=== PATIENT | male | born 1965 | race Caucasian/White ===

== ENCOUNTER 2018-03-31 09:55 | Observation (INO) ==
[2018-03-31] MEDS ORDERED: Sod Chloride 0.9% Inj 1,000 ML IV.SIG ONE (10:34)
--- NOTE | 2018-03-31 10:42 | ED ---
HPI General Chief complaint: Abdominal Pain Stated complaint: Med clearance Time Seen by Provider: 03/31/18 10:27 Source: patient Mode of arrival: ambulatory Limitations: no limitations History of Present Illness HPI narrative: The patient is 52-year-old male with history of hypertension on metoprolol, diabetes on metformin and depression resented with complaint of muscle cramps and profuse sweating but stopped after he started working for 3 hours on the heat. The patient is diabetic and has been drinking a lot of water. He states that he drank almost 15 L of water yesterday another 6 L today. He usually gets Pedialyte but he did not have anything with electrode so she was just drinking water. Complains of polydipsia and polyuria Onset (ago): hour(s) (1) Location: upper extremity and lower extremity Radiation: non-radiation Severity: moderate Severity scale (1-10): 5 Quality: other (Cramping ) Pain Consistency: constant Relieving factors: none Exacerbating factors: other (Exertion) Associated symptoms: diaphoresis (Patient stopped swelling about an hour and a half ago..) Related Data Home Medications Medication Instructions Recorded Confirmed allopurinol 100 mg PO DAILY 03/31/18 03/31/18 alprazolam [Xanax] 1 mg PO BID PRN 03/31/18 03/31/18 citalopram 40 mg PO DAILY 03/31/18 03/31/18 metformin 500 mg PO BID 03/31/18 03/31/18 metoprolol tartrate 50 mg PO HS 03/31/18 03/31/18 promethazine 25 mg PO Q4H PRN 03/31/18 03/31/18 tamsulosin 0.4 mg PO DAILY 03/31/18 03/31/18 Allergies Allergy/AdvReac Type Severity Reaction Status Date / Time No Known Allergies Allergy Unverified 03/31/18 10:18 Review of Systems ROS Unobtainable All other systems reviewed negative except as stated in HPI Constitutional Denies fever(s) Eyes Denies change in vision ENT Denies headache(s) and Denies nasal congestion Cardiovascular Denies chest pain Respiratory Denies dyspnea Gastrointestinal Denies abdominal pain Genitourinary Denies difficulty urinating Musculoskeletal Reports myalgias and Reports muscle cramps Integumentary/Breasts Denies rash Neurologic Denies headache(s) Psychiatric Denies depression Endocrine Reports as per HPI, Reports excessive sweating, Reports polydipsia and Reports polyuria Hematologic/Lymphatic Denies easy bruising [facility] Medical History Medical History Anxiety (Acute) Depression (Acute) Diabetes (Acute) Gout (Acute) Hypertension (Acute) Social History Social History Substance History: No History of Abuse Second Hand Smoke Exposure: No Smoking Status: Never smoker How Often Do You Have a Drink Containing Alcohol: Monthly or less Recent Travel in [facility] within the Last 8 Weeks: No Recent Out of Country Travel within the Last 8 Weeks: No Immunization History Tetanus Immunization: <5 Years Hx Influenza Vaccine This Season: No Exam Const General: no acute distress and does not appear intoxicated Nutritional Appearance: obese Orientation: alert, awake and oriented x3 Limitations: mental status not altered and no behavioral limitations HENMT Head: normocephalic and atraumatic Nose: no nasal discharge and no epistaxis Mouth: moist mucous membranes Eyes Sclera: normal sclerae Pupils: PERRL Neck Neck: trachea midline and no JVD Resp Effort & Inspection: no use of accessory muscles Auscultation: clear to auscultation bilaterally Cardio Rate: regular rate Rhythm: regular rhythm Heart Sounds: no murmurs GI Inspection: non-distended Palpation: soft, no hepatosplenomegaly and nontender Skin General: dry skin (warm) and petechiae (lower extremities bilaterally) Neuro General: alert and awake Cranial Nerves: other Speech: speech normal Motor: no movement abnormalities noted Extrem General: normal to inspection, no clubbing, no cyanosis and no edema Psych Mood: congruent mood Affect: normal affect Judgment: judgment good Course Hospital Course: Patient with elevated CK. Start hydration in the deep renal azotemia and AK I also noted. UA is not suggestive of rhabdomyolysis at this time. Tox screen was positive for benzodiazepines. No signs of stimulant abuse. Reevaluation(s) Reevaluation #1: Patient's resting comfortably being rehydrated. We will admit under observation for hydration and reevaluate in the morning Time: 12:32 Initial Documented Vital Signs Temperature 97.9 F 03/31/18 10:00 Pulse Rate 91 H 03/31/18 10:00 Respiratory Rate 20 03/31/18 10:00 Blood Pressure 134/66 03/31/18 10:00 Pulse Oximetry 97 03/31/18 10:00 Last Documented Vital Signs Temperature 97.9 F 03/31/18 10:00 Pulse Rate 73 03/31/18 14:59 Respiratory Rate 18 03/31/18 14:59 Blood Pressure 144/86 H 03/31/18 14:59 Pulse Oximetry 98 03/31/18 14:59 Medical Decision Making MDM Narrative Medical decision making narrative: Patient with elevated CK above 1000. His urinalysis is not suggestive of rhabdomyolysis at this time. Glucose elevated BUN 27 AST 43. Prerenal azotemia noted. Patient was hydrated and will be admitted for continued hydration and serial CKs for resolution of his current presentation. Hemodynamically stable alert and oriented not appearing toxic. Lab Data Lab results reviewed: Yes I reviewed the patient's lab results. Result diagrams: 03/31/18 10:45 03/31/18 10:45 Lab Results 03/31/18 03/31/18 03/31/18 Range/Units 10:45 10:45 10:45 WBC 9.0 (4.0-11.0) th/mm3 RBC 5.09 (4.50-5.90) mil/mm3 Hgb 16.4 (13.0-17.0) gm/dL Hct 47.7 (39.0-51.0) % MCV 93.8 (80.0-100.0) fL MCH 32.2 (27.0-34.0) pg MCHC 34.3 (32.0-36.0) % RDW 13.8 (11.6-17.2) % Plt Count 253 (150-450) th/mm3 MPV 8.8 (7.0-11.0) fL Neut % (Auto) 68.6 (16.0-70.0) % Lymph % (Auto) 21.5 (9.0-44.0) % [place] % (Auto) 8.9 H (0.0-8.0) % Eos % (Auto) 0.7 (0.0-4.0) % Baso % (Auto) 0.3 (0.0-2.0) % Neut # (Auto) 6.2 (1.8-7.7) th/mm3 Lymph # (Auto) 1.9 (1.0-4.8) th/mm3 [place] # (Auto) 0.8 (0.0-0.9) th/mm3 Eos # (Auto) 0.1 (0.0-0.4) th/mm3 Baso # (Auto) 0.0 (0.0-0.2) th/mm3 WBC Differential . Differential Comment Auto diff final Sodium 137 (136-145) meq/L Potassium 4.5 (3.5-5.1) meq/L Chloride 104 (98-107) meq/L Carbon Dioxide 24.5 (21.0-32.0) meq/L Anion Gap 9 (5-15) meq/L BUN 27 H (7-18) mg/dL Creatinine 1.28 (0.60-1.30) mg/dL Estimated GFR 59 L (>89) mL/min Random Glucose 176 H (74-106) mg/dL Calcium 9.3 (8.5-10.1) mg/dL Total Bilirubin 0.5 (0.2-1.0) mg/dL AST 43 H (15-37) U/L ALT 34 (12-78) U/L Alkaline Phosphatase 67 (45-117) U/L Total Creatine Kinase 1079 H Cancelled (39-308) U/L CK-MB (CK-2) 9.6 H (0.5-3.6) ng/mL CK-MB (CK-2) % 0.9 (0.0-4.0) % Total Protein 8.8 H (6.4-8.2) g/dL Albumin 4.3 (3.4-5.0) g/dL Urine Color (Yellw/Straw) Urine Clarity (Clear) Urine pH (5.0-8.5) Ur Specific [place] (1.002-1.035) Urine Protein (Neg-Trace) mg/dL Urine Glucose (UA) (Negative) mg/dL Urine Ketones (Negative) mg/dL Urine Occult Blood (Negative) Urine Nitrate (Negative) Urine Bilirubin (Negative) Urine Urobilinogen (Less than 2) mg/dL Ur Leukocyte Esterase (Negative) Urine RBC (0-3) /hpf Urine WBC (0-5) /hpf Ur Squamous Epith Cells (0-5) /hpf Urine Bacteria (None) /hpf Hyaline Casts (0-3) /lpf Urine Mucus (Occasional) /lpf Urine Opiates Screen (Neg) Ur Barbiturates Screen (Neg) Ur Amphetamines Screen (Neg) U Benzodiazepines Scrn (Neg) Urine Cocaine Screen (Neg) U Cannabinoids Screen (Neg) Serum Alcohol Less than 3 (0-5) mg/dL 03/31/18 03/31/18 Range/Units 10:58 10:58 WBC (4.0-11.0) th/mm3 RBC (4.50-5.90) mil/mm3 Hgb (13.0-17.0) gm/dL Hct (39.0-51.0) % MCV (80.0-100.0) fL MCH (27.0-34.0) pg MCHC (32.0-36.0) % RDW (11.6-17.2) % Plt Count (150-450) th/mm3 MPV (7.0-11.0) fL Neut % (Auto) (16.0-70.0) % Lymph % (Auto) (9.0-44.0) % [place] % (Auto) (0.0-8.0) % Eos % (Auto) (0.0-4.0) % Baso % (Auto) (0.0-2.0) % Neut # (Auto) (1.8-7.7) th/mm3 Lymph # (Auto) (1.0-4.8) th/mm3 [place] # (Auto) (0.0-0.9) th/mm3 Eos # (Auto) (0.0-0.4) th/mm3 Baso # (Auto) (0.0-0.2) th/mm3 WBC Differential Differential Comment Sodium (136-145) meq/L Potassium (3.5-5.1) meq/L Chloride (98-107) meq/L Carbon Dioxide (21.0-32.0) meq/L Anion Gap (5-15) meq/L BUN (7-18) mg/dL Creatinine (0.60-1.30) mg/dL Estimated GFR (>89) mL/min Random Glucose (74-106) mg/dL Calcium (8.5-10.1) mg/dL Total Bilirubin (0.2-1.0) mg/dL AST (15-37) U/L ALT (12-78) U/L Alkaline Phosphatase (45-117) U/L Total Creatine Kinase (39-308) U/L CK-MB (CK-2) (0.5-3.6) ng/mL CK-MB (CK-2) % (0.0-4.0) % Total Protein (6.4-8.2) g/dL Albumin (3.4-5.0) g/dL Urine Color Yellow (Yellw/Straw) Urine Clarity Hazy H (Clear) Urine pH 5.0 (5.0-8.5) Ur Specific [place] 1.030 (1.002-1.035) Urine Protein 100 H (Neg-Trace) mg/dL Urine Glucose (UA) Negative (Negative) mg/dL Urine Ketones Negative (Negative) mg/dL Urine Occult Blood Negative (Negative) Urine Nitrate Negative (Negative) Urine Bilirubin Negative (Negative) Urine Urobilinogen 2.0 H (Less than 2) mg/dL Ur Leukocyte Esterase Negative (Negative) Urine RBC 1 (0-3) /hpf Urine WBC 1 (0-5) /hpf Ur Squamous Epith Cells 1 (0-5) /hpf Urine Bacteria Many H (None) /hpf Hyaline Casts 36 (0-3) /lpf Urine Mucus Few H (Occasional) /lpf Urine Opiates Screen Neg (Neg) Ur Barbiturates Screen Neg (Neg) Ur Amphetamines Screen Neg (Neg) U Benzodiazepines Scrn Pos H (Neg) Urine Cocaine Screen Neg (Neg) U Cannabinoids Screen Neg (Neg) Serum Alcohol (0-5) mg/dL Imaging Data Attestation: I personally reviewed and interpreted this imaging study as follows : Radiologist's impression: Chest X-Ray 03/31/18 10:34 CONCLUSION: No acute intrathoracic disease. Discharge Plan Discharge Disposition Patient Disposition: 30 Still Patient Discharge Condition Condition: Stable Discharge Details Diagnosis: Elevated CK, Acute dehydration Physicians Team ED Provider: Alvaro Hendrix Primary Care Provider: UNKNOWN, Attending Provider: Wilma Reyes Status ED Status: Admitted Observation Patient
--- NOTE | 2018-03-31 11:16 | XR ---
EXAM DATE: 03/31/2018 11:07 AM EDT AGE/SEX: 52 years / Male INDICATIONS: . Shortness of breath, chest pain, dizzy. CLINICAL DATA: This is the patient's initial encounter. Patient reports that signs and symptoms have been present for 1 day and indicates a pain score of 5/10. MEDICAL/SURGICAL HISTORY: Hypertension. Diabetes mellitus type II. None. COMPARISON: No prior exams available for comparison. FINDINGS: A single AP view of the chest demonstrates the lungs to be symmetrically aerated without evidence of mass, infiltrate or effusion. The cardiomediastinal contours are unremarkable. Osseous structures a re intact. CONCLUSION: No acute intrathoracic disease. Electronically signed by: James Lyon MD 03/31/2018 11:15 AM EDT
[2018-03-31 11:20] LABS: Baso % (Auto) 0.3 % (0.0-2.0); Eos # (Auto) 0.1 th/mm3 (0.0-0.4); Eos % (Auto) 0.7 % (0.0-4.0); Hematocrit 47.7 % (39.0-51.0); Hemoglobin 16.4 gm/dL (13.0-17.0); Lymph # (Auto) 1.9 th/mm3 (1.0-4.8); Lymph % (Auto) 21.5 % (9.0-44.0); Mean Corpuscular HGB Conc 34.3 % (32.0-36.0); Mean Corpuscular Hemoglobin 32.2 pg (27.0-34.0); Mean Corpuscular Volume 93.8 fL (80.0-100.0); Mean Platelet Volume 8.8 fL (7.0-11.0); Mono # (Auto) 0.8 th/mm3 (0.0-0.9); Mono % (Auto) 8.9 % (0.0-8.0); Neut # (Auto) 6.2 th/mm3 (1.8-7.7); Neut % (Auto) 68.6 % (16.0-70.0); Platelet Count 253 th/mm3 (150-450); Red Blood Count 5.09 mil/mm3 (4.50-5.90); Red Cell Distribution Width 13.8 % (11.6-17.2)
[2018-03-31 11:34] LABS: Anion Gap 9 meq/L (5-15)
[2018-03-31 11:34] LABS: Amphetamine Screen,Urine Neg (Neg); Barbiturate Screen,Urine Neg (Neg); Cannabinoid Screen,Urine Neg (Neg); Cocaine Screen,Urine Neg (Neg)
[2018-03-31 11:36] LABS: Bacteria,Urine Many /hpf; Bilirubin,Urine Negative (Negative); Clarity,Urine Hazy (Clear); Color,Urine Yellow (Yellw/Straw); Glucose,Urine (UA) Negative (Negative); Hyaline Casts,Urine 36 /lpf (0-3); Leukocyte Esterase,Urine Negative (Negative); Mucus,Urine Few /lpf (Occasional); Nitrite,Urine Negative (Negative); Squamous Epithelial Cell,Urine 1 /hpf (0-5)
[2018-03-31 11:40] LABS: Opiate Screen,Urine Neg (Neg)
[2018-03-31 11:44] LABS: Alanine Aminotransferase 34 U/L (12-78); Albumin 4.3 g/dL (3.4-5.0); Alkaline Phosphatase 67 U/L (45-117); Aspartate Aminotransferase 43 U/L (15-37); Blood Urea Nitrogen 27 mg/dL (7-18); Calcium 9.3 mg/dL (8.5-10.1); Carbon Dioxide 24.5 meq/L (21.0-32.0); Chloride 104 meq/L (98-107); Creatine Kinase 1079 U/L (39-308); Glomerular Filtration Rate 59 mL/min (>89); Glucose,Random 176 mg/dL (74-106); Potassium 4.5 meq/L (3.5-5.1); Sodium 137 meq/L (136-145); Total Protein 8.8 g/dL (6.4-8.2)
[2018-03-31 12:01] LABS: CKMB Percent 0.9 % (0.0-4.0); Creatine Kinase MB 9.6 ng/mL (0.5-3.6)
--- NOTE | 2018-03-31 16:01 | P.HPFP ---
History of Present Illness Primary Care Physician: UNKNOWN History of Present Illness: Mr. Sifuentes is a 52 y/o M presenting to the ED with muscle cramps, diaphoresis, and polydipsia concerning for heat exhaustion vs. rhabdomyolysis. Patient states that daily since Thursday he has had daily episodes of severe cramping. 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 He has been profusely sweating due to the heat and felt that "something was wrong" earlier today as he became dizzy to point of almost falling off a "high rise." He felt that he was also getting delirious throughout the day and "offered a man his car." That is when he knew to come to the hospital for further evaluation. He currently has pain in the posterior of his BL UE and BL LE at the thigh. He scores the pain 5/10 and "sore" in nature. He feels that the IVF has helped, and the pain is aggravated by movement. He states that he has been drinking "a lot of water up to 6L a day to avoid being dehydrated." His only other compliant has been some mild nausea with nonbloody loose stools over this timeframe. PMHx: T2DM HTN Anxiety/Depression Gout History of opiate dependence Bilateral torn rotator cuffs PSHx: Tonsillectomy FMHx: Mother - Crohn's, Emphysema, Tobacco abuse, Father - Unknown SHx: PCP in [place] where he lives. Has appointment on Thursday. Tobacco - Denies tobacco history Alcohol - Last drink was New Years. History of use. Illicit - History of opiate dependence. Currently taking Ativan up to TID prescribed for his anxiety. - Diagnosis (1) Elevated CK (2) Heat cramps (3) Hypertension (4) Diabetes mellitus (5) Anxiety and depression (6) BPH (benign prostatic hyperplasia) (7) Gout (8) Nutrition, metabolism, and development symptoms (9) DVT prophylaxis Review of Systems Constitutional: Reports chills, Reports fatigue, Reports night sweats Eyes: Denies change in vision, Denies double vision Ears, Nose, Mouth, and Throat: Reports dizziness, Reports dry mouth, Reports headache(s), Reports nasal discharge Cardiovascular: Reports excessive sweating, Denies chest pain Respiratory: Denies cough, Denies excessive phlegm production Gastrointestinal: Reports loose stools, Reports nausea, Denies abdominal pain, Denies vomiting Genitourinary: Denies difficulty urinating, Denies urinary frequency, Denies urinary urgency Musculoskeletal: Reports back pain (Chronic) Skin/Breast: Reports rash (BL LE ), Denies sores Neurologic: Reports dizziness, Denies abnormal hearing, Denies fainting Psychiatric: Reports anxiety, Denies panic attacks Endocrine: Reports excessive sweating Hematologic/Lymphatic: Denies easy bleeding PMFSH - History History Provided By: Patient - Medical History Medical History: Medical History (Last Updated 03/31/18 @ 18:17 by Torri Vargas RN) Anxiety Depression Diabetes Gout Hypertension Shoulder joint pain - Tobacco History Second Hand Smoke Exposure: No Smoking Status: Never smoker - Alcohol History How Often Do You Have a Drink Containing Alcohol: Monthly or less - Substance Use History Substance History: No History of Abuse - Travel History Recent Travel in the [facility] Within the Last 8 Weeks: No Recent Travel Out of the Country Within the Last 8 Weeks: No - Immunization History Tetanus Immunization: <5 Years Hx Influenza Vaccine This Season: No Medications and Allergies Allergies Allergy/AdvReac Type Severity Reaction Status Date / Time No Known Allergies Allergy Verified 03/31/18 18:17 Home Medications Medication Instructions Recorded Confirmed Type allopurinol 100 mg PO DAILY 03/31/18 03/31/18 History alprazolam [Xanax] 1 mg PO BID PRN 03/31/18 03/31/18 History citalopram 40 mg PO DAILY 03/31/18 03/31/18 History metformin 500 mg PO BID 03/31/18 03/31/18 History metoprolol tartrate 50 mg PO HS 03/31/18 03/31/18 History promethazine 25 mg PO Q4H PRN 03/31/18 03/31/18 History tamsulosin 0.4 mg PO DAILY 03/31/18 03/31/18 History Exam Vital signs: Vital Signs 03/31/18 10:00 03/31/18 10:21 03/31/18 14:59 Temperature 97.9 F Pulse Rate 91 H 91 H 73 Respiratory Rate 20 18 18 Blood Pressure 134/66 121/90 144/86 H Pulse Oximetry 97 96 98 Intake & Output 03/30/18 03/31/18 03/31/18 18:59 06:59 18:59 Weight 113.398 kg Narrative: GENERAL: Well-nourished, well-developed male lying in bed watching TV upon entering the room in no acute distress. SKIN: Warm and dry. Hyperpigmented with multiple tattoos on bilateral upper extremities. BL LE: 2 small areas on each of his bilateral lower extremities with multiple erythematous macules with surrounding signs of pruritus. No drainage or bleeding appreciated. HEENT: Atraumatic, normocephalic with extraocular motions intact. No rhinorrhea. No visible lymphadenopathy or jugulovenous distension appreciated. CARDIOVASCULAR: Regular rate and rhythm without obvious murmurs, gallops, or rubs. 2+ pulses in all four extremities. RESPIRATORY: Clear to auscultation bilaterally with no crackles, wheezes, or rhonchi. No increased work of breathing. GASTROINTESTINAL: Abdomen soft, non-tender, nondistended with positive bowel sounds. No masses appreciated. MUSCULOSKELETAL: No cyanosis or edema. No calf tenderness. BL UE: Bilateral upper extremities with limited flexion and abduction secondary to known rotator cuff tears bilaterally. Sensation and hand strength within normal limits. 2+ pulses radially. NEURO/PSYCH: Afocal. Awake, alert, and oriented x3. Normal speech and judgement. Results - Labs Result diagrams: 03/31/18 10:45 03/31/18 10:45 Abnormal lab results 03/31/18 03/31/18 03/31/18 Range/Units 10:45 10:45 10:58 [place]ook[place] % (Auto) 8.9 H (0.0-8.0) % BUN 27 H (7-18) mg/dL Estimated GFR 59 L (>89) mL/min Random Glucose 176 H (74-106) mg/dL AST 43 H (15-37) U/L Total Creatine Kinase 1079 H (39-308) U/L CK-MB (CK-2) 9.6 H (0.5-3.6) ng/mL Total Protein 8.8 H (6.4-8.2) g/dL Urine Clarity (Clear) Urine Protein (Neg-Trace) mg/dL Urine Urobilinogen (Less than 2) mg/dL Urine Bacteria (None) /hpf Urine Mucus (Occasional) /lpf U Benzodiazepines Scrn Pos H (Neg) 03/31/18 Range/Units 10:58 [place] % (Auto) (0.0-8.0) % BUN (7-18) mg/dL Estimated GFR (>89) mL/min Random Glucose (74-106) mg/dL AST (15-37) U/L Total Creatine Kinase (39-308) U/L CK-MB (CK-2) (0.5-3.6) ng/mL Total Protein (6.4-8.2) g/dL Urine Clarity Hazy H (Clear) Urine Protein 100 H (Neg-Trace) mg/dL Urine Urobilinogen 2.0 H (Less than 2) mg/dL Urine Bacteria Many H (None) /hpf Urine Mucus Few H (Occasional) /lpf U Benzodiazepines Scrn (Neg) Short CBC 03/31/18 Range/Units 10:45 WBC 9.0 (4.0-11.0) th/mm3 Hgb 16.4 (13.0-17.0) gm/dL Hct 47.7 (39.0-51.0) % Plt Count 253 (150-450) th/mm3 BMP 03/31/18 10:45 Sodium 137 Potassium 4.5 Chloride 104 Carbon Dioxide 24.5 BUN 27 H Creatinine 1.28 Calcium 9.3 Cardiac Enzymes 03/31/18 03/31/18 Range/Units 10:45 10:45 Total Creatine Kinase 1079 H Cancelled (39-308) U/L CK-MB (CK-2) 9.6 H (0.5-3.6) ng/mL Liver Function 03/31/18 Range/Units 10:45 Total Bilirubin 0.5 (0.2-1.0) mg/dL AST 43 H (15-37) U/L ALT 34 (12-78) U/L Alkaline Phosphatase 67 (45-117) U/L Albumin 4.3 (3.4-5.0) g/dL Urine 03/31/18 Range/Units 10:58 Urine Color Yellow (Yellw/Straw) Urine Clarity Hazy H (Clear) Urine pH 5.0 (5.0-8.5) Ur Specific [place] 1.030 (1.002-1.035) Urine Protein 100 H (Neg-Trace) mg/dL Urine Glucose (UA) Negative (Negative) mg/dL - Imaging Impressions Chest X-Ray 03/31/18 10:34 CONCLUSION: No acute intrathoracic disease. Caprini VTE Risk Assessment Caprini VTE Risk Assessment: Moderate/High Risk (score >= 2) Caprini Risk Assessment Model: Point Value = 1 Point Value = 2 Point Value = 3 Point Value = 5 Age 41-60 Minor surgery BMI > 25 kg/m2 Swollen legs Varicose veins or History of unexplained or recurrent spontaneous Oral contraceptives or hormone replacement Sepsis (< 1 month) Serious lung disease, including pneumonia (< 1 month) Abnormal pulmonary function Acute myocardial infarction Congestive heart failure (< 1 month) History of inflammatory bowel disease Medical patient at bed rest Age 61-74 Arthroscopic surgery Major open surgery (> 45 min) Laparoscopic surgery (> 45 min) Malignancy Confined to bed (> 72 hours) Immobilizing plaster cast Central venous access Age >= 75 History of VTE Family history of VTE Factor V Leiden Prothrombin [id number] Lupus anticoagulant Anticardiolipin antibodies Elevated serum homocysteine Heparin-induced thrombocytopenia Other congenital or acquired thrombophilia Stroke (< 1 month) Elective arthroplasty Hip, pelvis, or leg fracture Acute spinal cord injury (< 1 month) Prophylaxis Regimen: Total Risk Factor Score Risk Level Prophylaxis Regimen 0-1 Low Early ambulation 2 Moderate Order ONE of the following: *Sequential Compression Device (SCD) *Heparin 5000 units SQ BID 3-4 Higher Order ONE of the following medications: *Heparin 5000 units SQ TID *Enoxaparin/Lovenox 40 mg SQ daily (WT < 150 kg, CrCl > 30 mL/min) *Enoxaparin/Lovenox 30 mg SQ daily (WT < 150 kg, CrCl > 10-29 mL/min) *Enoxaparin/Lovenox 30 mg SQ BID (WT < 150 kg, CrCl > 30 mL/min) AND/OR *Sequential Compression Device (SCD) 5 or more Highest Order ONE of the following medications: *Heparin 5000 units SQ TID (Preferred with Epidurals) *Enoxaparin/Lovenox 40 mg SQ daily (WT < 150 kg, CrCl > 30 mL/min) *Enoxaparin/Lovenox 30 mg SQ daily (WT < 150 kg, CrCl > 10-29 mL/min) *Enoxaparin/Lovenox 30 mg SQ BID (WT < 150 kg, CrCl > 30 mL/min) AND *Sequential Compression Device (SCD) Assessment and Plan - Assessment (1) Elevated CK Code(s): R74.8 - Abnormal levels of other serum enzymes Status: Acute Plan: Patient admitted to observation for elevation of creatinine kinase with heat cramps. -Temperature 97.9 -CMP: Electrolytes within normal limits, creatinine normal at 1.28 -CK elevated to 1079 -UA: Hazy, 100 protein, 2 urobilinogen, many bacteria, few mucus -UDS: Positive for benzodiazepines (has prescription), otherwise negative -Ethanol: Negative -Repeat BMP and CK ordered, continue to trend Medications: -Patient received 1 L normal saline bolus in ER -Normal saline at 230 mL/h (1.5 maintenance fluids) as patient does not have documented or show signs of heart failure or renal injury (2) Heat cramps Code(s): T67.2XXA - Heat cramp, initial encounter Status: Acute Plan: -Please see plan as above (3) Hypertension Code(s): I10 - Essential (primary) hypertension Status: Acute Plan: Patient with history of essential hypertension -Continue home metoprolol -Clonidine as needed for blood pressure greater than 180/110 (4) Diabetes mellitus Code(s): E11.9 - Type 2 diabetes mellitus without complications Status: Acute Plan: Patient with history of type 2 diabetes currently controlled without insulin use -Hold home metformin -Low-dose sliding scale insulin per protocol (5) Anxiety and depression Code(s): F41.9 - Anxiety disorder, unspecified; F32.9 - Major depressive disorder, single episode, unspecified Status: Acute Plan: Patient with history of depression and anxiety -Continue home citalopram and Xanax (6) BPH (benign prostatic hyperplasia) Code(s): N40.0 - Benign prostatic hyperplasia without lower urinary tract symptoms Status: Acute Plan: Patient with BPH -Continue home tamsulosin (7) Gout Code(s): M10.9 - Gout, unspecified Status: Acute Plan: Patient with history of gout -Hold home allopurinol (8) Nutrition, metabolism, and development symptoms Code(s): R63.8 - Other symptoms and signs concerning food and fluid intake Status: Acute Plan: -Fluids: Normal saline at 230 mL/h (1.5 MF) -Electrolytes: Within normal limits, continue to monitor -Diet: Diabetic diet as tolerated -Prophylaxis: Clonidine as needed for blood pressure greater than 180/110, Zofran as needed for nausea/vomiting, Tylenol as needed for pain/fever/headache , calcium carbonate as needed for reflux, constipation protocol -PT ordered -Hold home promethazine for nausea/vomiting; contraindicated due to possible adverse effect of heat stroke (9) DVT prophylaxis Status: Acute Plan: -SCDs Medications: -Heparin 5000 units every 8 hours (2) Heat cramps Qualifiers: Encounter type: initial encounter Qualified Code(s): T67.2XXA - Heat cramp, initial encounter (3) Hypertension Qualifiers: Hypertension type: essential hypertension Qualified Code(s): I10 - Essential (primary) hypertension (4) Diabetes mellitus Qualifiers: Diabetes mellitus type: type 2 Diabetes mellitus custodial insulin use: without buttermaker use Diabetes mellitus complication status: with unspecified complications Qualified Code(s): E11.8 - Type 2 diabetes mellitus with unspecified complications (6) BPH (benign prostatic hyperplasia) Qualifiers: Lower urinary tract symptom presence: symptoms absent Qualified Code(s): N40.0 - Benign prostatic hyperplasia without lower urinary tract symptoms (7) Gout Qualifiers: Gout site: unspecified site Gout etiology: unspecified cause Chronicity: chronic Presence of tophus: without tophus Qualified Code(s): M1A.9XX0 - Chronic gout, unspecified, without tophus (tophi)
[2018-03-31] MEDS ORDERED: Acetaminophen 325 MG Tablet PO PRN (17:36)
[2018-03-31] MEDS ORDERED: Bisacodyl 10 MG Supp RECTAL PRN (17:36)
[2018-03-31] MEDS ORDERED: Senna/Docusate Sodium 8.6/50 MG Tablet PO PRN (17:36)
[2018-03-31] MEDS ORDERED: Dextrose 50% in Water 50 ML Vial IV.PUSH PRN (18:37)
[2018-03-31] MEDS: Heparin - SQ 10,000 UNITS/ML Vial SQ SCH (20:46)
[2018-03-31] MEDS: Sod Chloride 0.9% Inj 1,000 ML IV.CONT SCH (20:50)
[2018-03-31] MEDS: Insulin NovoLOG Aspart Correctional Sugar Inj SQ SCH (20:58)
[2018-03-31] MEDS ORDERED: Metoprolol Tartrate 25 MG Tablet PO SCH (21:00)
[2018-03-31 22:53] LABS: Calcium 8.6 mg/dL (8.5-10.1); Carbon Dioxide 27.4 meq/L (21.0-32.0); Potassium 3.8 meq/L (3.5-5.1)
[2018-03-31 23:13] LABS: CKMB Percent 0.8 % (0.0-4.0); Creatine Kinase MB 6.4 ng/mL (0.5-3.6)
[2018-04-01] MEDS: Sod Chloride 0.9% Inj 1,000 ML IV.CONT SCH ×2 (00:48→05:10)
[2018-04-01 03:39] VITALS: O2SAT 96
[2018-04-01] MEDS: Heparin - SQ 10,000 UNITS/ML Vial SQ SCH (05:09)
[2018-04-01 07:20] LABS: Baso % (Auto) 0.6 % (0.0-2.0); Eos # (Auto) 0.1 th/mm3 (0.0-0.4); Eos % (Auto) 2.4 % (0.0-4.0); Hematocrit 44.4 % (39.0-51.0); Hemoglobin 14.8 gm/dL (13.0-17.0); Lymph # (Auto) 1.7 th/mm3 (1.0-4.8); Mean Corpuscular HGB Conc 33.3 % (32.0-36.0); Mean Corpuscular Hemoglobin 31.8 pg (27.0-34.0); Mean Corpuscular Volume 95.4 fL (80.0-100.0); Mean Platelet Volume 8.6 fL (7.0-11.0); Mono # (Auto) 0.5 th/mm3 (0.0-0.9); Mono % (Auto) 8.8 % (0.0-8.0); Neut # (Auto) 3.6 th/mm3 (1.8-7.7); Neut % (Auto) 60.2 % (16.0-70.0); Platelet Count 194 th/mm3 (150-450); Red Blood Count 4.65 mil/mm3 (4.50-5.90); Red Cell Distribution Width 13.9 % (11.6-17.2)
[2018-04-01 07:32] LABS: Albumin 3.5 g/dL (3.4-5.0); Anion Gap 8 meq/L (5-15); Aspartate Aminotransferase 26 U/L (15-37); Blood Urea Nitrogen 18 mg/dL (7-18); Calcium 8.7 mg/dL (8.5-10.1); Carbon Dioxide 23.8 meq/L (21.0-32.0); Chloride 110 meq/L (98-107); Glomerular Filtration Rate Greater Than 89 mL/min (>89); Glucose,Random 152 mg/dL (74-106); Potassium 4.5 meq/L (3.5-5.1); Sodium 142 meq/L (136-145)
[2018-04-01 07:34] LABS: Alanine Aminotransferase 28 U/L (12-78)
[2018-04-01 07:35] LABS: Alkaline Phosphatase 53 U/L (45-117); Creatine Kinase 577 U/L (39-308); Total Protein 7.3 g/dL (6.4-8.2)
[2018-04-01 07:57] LABS: CKMB Percent 0.8 % (0.0-4.0); Creatine Kinase MB 4.6 ng/mL (0.5-3.6)
--- NOTE | 2018-04-01 08:04 | P.PNFP ---
Subjective Interval history: This progress note is written in conjunction with resident H&P dated 03/31/2018. Nate Sifuentes is a 52 yo gentleman with h/o HTN and DM II admitted under observation for concern for heat exhaustion vs rhabdomyolysis after presenting with muscle cramps, diaphoresis, and polydipsia. 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 For further details, please see resident H&P. Overnight, he received IV fluid. This morning, he reports his urine is more clear and his muscles are not sore. He feels ready to go home. He has an appt with his PCP tomorrow morning. ROS: No complaints. All symptoms have resolved; all systems reviewed are negative. PMH/PSxH/SocHx/FamHx: DM II, HTN, anxiety and depression, gout. Torn rotator cuffs, no surgical repair. . No alcohol abuse. No tobacco. No recreational drug use, but is prescribed ativan. Results - Labs Result diagrams: 04/01/18 06:27 04/01/18 06:27 Abnormal lab results 03/31/18 03/31/18 03/31/18 Range/Units 10:45 10:45 10:58 [place] % (Auto) 8.9 H (0.0-8.0) % Chloride (98-107) meq/L BUN 27 H (7-18) mg/dL Estimated GFR 59 L (>89) mL/min POC Glucose (68-110) mg/dl Random Glucose 176 H (74-106) mg/dL AST 43 H (15-37) U/L Total Creatine Kinase 1079 H (39-308) U/L CK-MB (CK-2) 9.6 H (0.5-3.6) ng/mL Total Protein 8.8 H (6.4-8.2) g/dL Urine Clarity (Clear) Urine Protein (Neg-Trace) mg/dL Urine Urobilinogen (Less than 2) mg/dL Urine Bacteria (None) /hpf Urine Mucus (Occasional) /lpf U Benzodiazepines Scrn Pos H (Neg) 03/31/18 03/31/18 03/31/18 Range/Units 10:58 18:34 20:56 [place] % (Auto) (0.0-8.0) % Chloride (98-107) meq/L BUN (7-18) mg/dL Estimated GFR (>89) mL/min POC Glucose 129 H 242 H (68-110) mg/dl Random Glucose (74-106) mg/dL AST (15-37) U/L Total Creatine Kinase (39-308) U/L CK-MB (CK-2) (0.5-3.6) ng/mL Total Protein (6.4-8.2) g/dL Urine Clarity Hazy H (Clear) Urine Protein 100 H (Neg-Trace) mg/dL Urine Urobilinogen 2.0 H (Less than 2) mg/dL Urine Bacteria Many H (None) /hpf Urine Mucus Few H (Occasional) /lpf U Benzodiazepines Scrn (Neg) 03/31/18 03/31/18 04/01/18 Range/Units 21:53 21:53 06:27 [place] % (Auto) (0.0-8.0) % Chloride 110 H (98-107) meq/L BUN 20 H (7-18) mg/dL Estimated GFR 84 L (>89) mL/min POC Glucose (68-110) mg/dl Random Glucose 173 H 152 H (74-106) mg/dL AST (15-37) U/L Total Creatine Kinase 769 H 577 H (39-308) U/L CK-MB (CK-2) 6.4 H 4.6 H (0.5-3.6) ng/mL Total Protein (6.4-8.2) g/dL Urine Clarity (Clear) Urine Protein (Neg-Trace) mg/dL Urine Urobilinogen (Less than 2) mg/dL Urine Bacteria (None) /hpf Urine Mucus (Occasional) /lpf U Benzodiazepines Scrn (Neg) 04/01/18 Range/Units 06:27 [place] % (Auto) 8.8 H (0.0-8.0) % Chloride (98-107) meq/L BUN (7-18) mg/dL Estimated GFR (>89) mL/min POC Glucose (68-110) mg/dl Random Glucose (74-106) mg/dL AST (15-37) U/L Total Creatine Kinase (39-308) U/L CK-MB (CK-2) (0.5-3.6) ng/mL Total Protein (6.4-8.2) g/dL Urine Clarity (Clear) Urine Protein (Neg-Trace) mg/dL Urine Urobilinogen (Less than 2) mg/dL Urine Bacteria (None) /hpf Urine Mucus (Occasional) /lpf U Benzodiazepines Scrn (Neg) Short CBC 03/31/18 04/01/18 Range/Units 10:45 06:27 WBC 9.0 6.0 (4.0-11.0) th/mm3 Hgb 16.4 14.8 (13.0-17.0) gm/dL Hct 47.7 44.4 (39.0-51.0) % Plt Count 253 194 (150-450) th/mm3 BMP 03/31/18 03/31/18 04/01/18 10:45 21:53 06:27 Sodium 137 139 142 Potassium 4.5 3.8 4.5 Chloride 104 106 110 H Carbon Dioxide 24.5 27.4 23.8 BUN 27 H 20 H 18 Creatinine 1.28 0.94 0.79 Calcium 9.3 8.6 8.7 Cardiac Enzymes 03/31/18 03/31/18 03/31/18 Range/Units 10:45 10:45 21:53 Total Creatine Kinase 1079 H Cancelled 769 H (39-308) U/L CK-MB (CK-2) 9.6 H 6.4 H (0.5-3.6) ng/mL 04/01/18 Range/Units 06:27 Total Creatine Kinase 577 H (39-308) U/L CK-MB (CK-2) 4.6 H (0.5-3.6) ng/mL Liver Function 03/31/18 04/01/18 Range/Units 10:45 06:27 Total Bilirubin 0.5 0.6 (0.2-1.0) mg/dL AST 43 H 26 (15-37) U/L ALT 34 28 (12-78) U/L Alkaline Phosphatase 67 53 (45-117) U/L Albumin 4.3 3.5 D (3.4-5.0) g/dL Urine 03/31/18 Range/Units 10:58 Urine Color Yellow (Yellw/Straw) Urine Clarity Hazy H (Clear) Urine pH 5.0 (5.0-8.5) Ur Specific [place] 1.030 (1.002-1.035) Urine Protein 100 H (Neg-Trace) mg/dL Urine Glucose (UA) Negative (Negative) mg/dL - Imaging Impressions Chest X-Ray 03/31/18 10:34 CONCLUSION: No acute intrathoracic disease. Physical Exam Vital signs: Vital Signs 03/31/18 10:00 03/31/18 10:21 03/31/18 14:59 Temperature 97.9 F Pulse Rate 91 H 91 H 73 Respiratory Rate 20 18 18 Blood Pressure 134/66 121/90 144/86 H Pulse Oximetry 97 96 98 03/31/18 19:38 04/01/18 00:00 04/01/18 03:38 Temperature 98.5 F 98.4 F 98.7 F Pulse Rate 77 62 60 Respiratory Rate 17 17 17 Blood Pressure 148/80 H 128/79 124/73 Pulse Oximetry 96 95 96 Intake & Output 03/31/18 04/01/18 04/01/18 18:59 06:59 18:59 Intake Total 1000 / 1000 1000 / 1000 Balance 1000 / 1000 1000 / 1000 Weight 114.5 kg Intake: IV 1000 / 1000 1000 / 1000 NS Inj 1,000 ML @ 230 mls/hr IV 1000 / 1000 .CONT .[id number] RONNY Rx#:[id number] NS Inj 1,000 ML @ Wide Open IV. 1000 / 1000 SIG BOLUS ONE Rx#:[id number] Other: Weight On Admission 114.5 kg Narrative: Per resident H&P. Significant for: In NAD, no resp distress. MMM. Good cap refill; good skin turgor. No CVAT. Assessment and Plan - Assessment (1) Elevated CK Code(s): R74.8 - Abnormal levels of other serum enzymes Status: Acute Plan: Patient admitted to observation for elevation of creatinine kinase with heat cramps; CK has now improved and his symptoms have resolved. -BUN/Cr normal this morning. -Temperature 97.9 on presentation -CK elevated to 1079 at presentation --> 577 -UDS: Positive for benzodiazepines (has prescription), otherwise negative -Ethanol: Negative Medications: -Patient received 1 L normal saline bolus in ER -Normal saline at 230 mL/h (1.5 maintenance fluids) as patient does not have documented or show signs of heart failure or renal injury Encouraged patient to drink plenty of water (2) Heat cramps Code(s): T67.2XXA - Heat cramp, initial encounter Status: Resolved Plan: Resolved -Please see plan as above (3) Hypertension Code(s): I10 - Essential (primary) hypertension Status: Chronic Plan: Patient with history of essential hypertension; currently under good control -Continue home metoprolol -Clonidine as needed for blood pressure greater than 180/110 (4) Diabetes mellitus Code(s): E11.9 - Type 2 diabetes mellitus without complications Status: Chronic Plan: Patient with history of type 2 diabetes currently controlled without insulin use -Hold home metformin -Low-dose sliding scale insulin per protocol (5) Anxiety and depression Code(s): F41.9 - Anxiety disorder, unspecified; F32.9 - Major depressive disorder, single episode, unspecified Status: Acute Plan: Patient with history of depression and anxiety -Continue home citalopram and Xanax (6) BPH (benign prostatic hyperplasia) Code(s): N40.0 - Benign prostatic hyperplasia without lower urinary tract symptoms Status: Acute Plan: Patient with BPH -Continue home tamsulosin (7) Gout Code(s): M10.9 - Gout, unspecified Status: Chronic Plan: Patient with history of gout -Hold home allopurinol - Assessment and Plan Discharge Planning: Discharge home today. - Attending Attestation Patient seen, examined, and discussed with resident team. (2) Heat cramps Qualifiers: Encounter type: subsequent encounter Qualified Code(s): T67.2XXD - Heat cramp , subsequent encounter (3) Hypertension Qualifiers: Hypertension type: essential hypertension Qualified Code(s): I10 - Essential (primary) hypertension (4) Diabetes mellitus Qualifiers: Diabetes mellitus type: type 2 Diabetes mellitus chcf insulin use: without watermaster use Diabetes mellitus complication status: with unspecified complications Qualified Code(s): E11.8 - Type 2 diabetes mellitus with unspecified complications (6) BPH (benign prostatic hyperplasia) Qualifiers: Lower urinary tract symptom presence: symptoms absent Qualified Code(s): N40.0 - Benign prostatic hyperplasia without lower urinary tract symptoms (7) Gout Qualifiers: Gout site: unspecified site Gout etiology: unspecified cause Chronicity: chronic Presence of tophus: without tophus Qualified Code(s): M1A.9XX0 - Chronic gout, unspecified, without tophus (tophi)
[2018-04-01 08:42] VITALS: BP 123/72; PULSE 72; RESP 18; TEMP 98.6
[2018-04-01] MEDS ORDERED: Citalopram 20 MG Tablet PO SCH (09:00)
[2018-04-01] MEDS: Insulin NovoLOG Aspart Correctional Sugar Inj SQ SCH (09:31)
== END 2018-04-01 11:00 | disposition home or self-care (01) ==
LOC: NEPC 09:55 → NEPHCDU 09:55 → NEDA 09:55 → NEPHCDU 18:04
PROVIDERS: ADMIT Family Medicine; ATTEND Family Medicine